=== PATIENT | male | born 1965 | race Caucasian/White ===

== ENCOUNTER 2016-12-08 21:23 | Emergency (ER) | payer BC ==
--- NOTE | 2016-12-08 21:41 | EDM.PDOC ---
ED HPI Trauma - General Chief Complaint: Upper Extremity Injury/Pain Stated Complaint: PT FELL AND HURT RT WRIST Time Seen by Provider: 12/08/16 21:36 Source: Reports: Patient History Limitations: Reports: No limitations - History of Present Illness INITIAL COMMENTS - FREE TEXT/NARRATIVE: HISTORY AND PHYSICAL: [51-year-old male presents after 2 hours ago falling from a standing position and had his right hand outstretched which hit a step bending it backwards. Pain has not improved] History of Present Illness: [Incident occurred about 2 hours previous to coming to the emergency department] Review of Systems: As per history of present illness and below otherwise all systems reviewed and negative. Past medical history: As per history of present illness and as reviewed below otherwise noncontributory. Surgical history: As per history of present illness and as reviewed below otherwise noncontributory. Social history: No reported history of drug or alcohol abuse. Family history: As per history of present illness and as reviewed below otherwise noncontributory. Physical exam: Alert gentleman denies hitting his head, edema is noted to his right wrist. HEENT: Atraumatic, normocehpalic, pupils reactive, negative for conjunctival pallor or scleral icterus, mucous membranes moist, throat clear, neck supple, nontender, trachea midline. Lungs: Clear to auscultation, breath sounds equal bilaterally, chest non tender. Heart: S1S2, regular, negative for clicks, rubs, or JVD. Abdomen: Soft, nondistended, nontender. Negative for masses or hepatossplenmegaly. Negative for costovertebral tenderness. Pelvis: Stable nontender. Genitourinary: Deferred. Rectal: Deferred Extremities: negative for cords or calf pain. Sensation is intact to the right fingers. Radial pulse is easily palpable. 2+ edema present the anterior surface of his right wrist. Neurovascular unremarkable. Neuro: Awake, alert, oriented. Cranial nerves II through XII unremarkable. Cerebellum unremarkable. Motor and sensory unremarkable throughout. Exam nonfocal. Discussed with patient and his the fracture to the wrist and picture was taken. Both verbalized understanding of these instructions. Diagnostics: [X-ray right wrist and forearm] Therapeutics: [] Impression: [closed distal radius fracture] Plan: [splint] Hydrocodone for pain elevate and ice followup next week for re-evaluation with your PCP Definitive disposition and diagnosis as appropriate pending reevaluation and review of above. Occurred When: this evening Occurred Where: home Method of Injury: fall Severity: moderate Pain/Injury Location: Reports: upper extremity, right Consciousness: Reports: no loss of consciousness, remembers incident, remembers coming to hosp Allergies/ADRs: Allergies fluoxetine [From Prozac] Allergy (Verified 12/08/16 21:33) Hives morphine Allergy (Verified 02/21/16 16:49) Vomiting promethazine [From Phenergan] Allergy (Verified 12/08/16 21:33) Vomiting Home Medications: Ambulatory Orders Allopurinol [Zyloprim] 300 mg PO DAILY 02/21/16 [Confirmed 12/08/16] Hydrochlorothiazide [Hydrochlorothiazide] 25 mg PO DAILY 02/21/16 [Confirmed ] Lisinopril [Lisinopril] 20 mg PO DAILY 02/21/16 [Confirmed 12/08/16] amLODIPine Besylate [Amlodipine Besylate] 5 mg PO DAILY 02/21/16 [Confirmed ] buPROPion [Wellbutrin XL] 1 tab PO DAILY 12/08/16 [Confirmed 12/08/16] Past Medical History Cardiovascular History: Reports: Hypertension Genitourinary History: Reports: Renal disease Musculoskeletal History: Reports: Gout, Other (see below) Other Musculoskeletal History: hip dislocation - Past Surgical History GI Surgical History: Reports: Cholecystectomy Musculoskeletal Surgical History: Reports: Shoulder surgery Other Musculoskeletal Surgeries/Procedures:: right shoulder surgery Social & Family History - Family History Family Medical History: Noncontributory - Tobacco Use Smoking Status *Q: Never Smoker Second Hand Smoke Exposure: No - Recreational Drug Use Recreational Drug Use: No Review of Systems - Review of Systems Review Of Systems: ROS reveals no pertinent complaints other than HPI. Trauma Exam - Physical Exam Exam: See Below Course - Vital Signs Last Recorded V/S: Last Vital Signs Temp 36.4 C 12/08/16 21:34 Pulse 98 12/08/16 21:34 Resp 20 12/08/16 21:34 BP 156/101 H 12/08/16 21:34 Pulse Ox 94 L 12/08/16 21:34 - Orders/Labs/Meds Orders: Active Orders 24 hr Category Date Time Status Splinting [RC] ASDIRECTED Care 12/08/16 22:35 Ordered Forearm 2V Rt [CR] Stat Exams 12/08/16 21:37 Ordered Wrist 2V Rt [CR] Stat Exams 12/08/16 21:37 Taken Meds: Medications Discontinued Medications Generic Name Dose Route Start Last Admin Trade Name Chiquita PRN Reason Stop Dose Admin Acetaminophen/Hydrocodone Bitart 1 tab 12/08/16 22:03 12/08/16 22:08 Napoleon 325-10 Mg PO 12/08/16 22:04 1 tab ONETIME ONE Administration Departure - Departure Time of Disposition: 22:38 Disposition: Home, Self-Care 01 Condition: good Clinical Impression: Closed fracture of radius Qualifiers: Encounter type: initial encounter Radius location: proximal Fracture morphology : unspecified fracture morphology Laterality: right Qualified Code(s): S52.101A - Unspecified fracture of upper end of right radius, initial encounter for closed fracture Forms: ED Department Discharge Additional Instructions: The following information is given to patients seen in the emergency department who are being discharged to home. This information is to outline your options for follow-up care. We provide all patients seen in our emergency department with a follow-up referral. The need for follow-up, as well as the timing and circumstances, are variable depending upon the specifics of your emergency department visit. If you don't have a primary care physician on staff, we will provide you with a referral. We always advise you to contact your personal physician following an emergency department visit to inform them of the circumstance of the visit and for follow-up with them and/or the need for any referrals to a consulting specialist. The emergency department will also refer you to a specialist when appropriate. This referral assures that you have the opportunity for followup care with a specialist. All of these measure are taken in an effort to provide you with optimal care, which includes your followup. Under all circumstances we always encourage you to contact your private physician who remains a resource for coordinating your care. When calling for followup care, please make the office aware that this follow-up is from your recent emergency room visit. If for any reason you are refused follow-up, please contact the [facility] emergency department at and asked to speak to the emergency department charge nurse. Elevate and Ice hydrocodone for pain followup with your PCP next week for re-evaluation Note for work - My Orders Last 24 Hours: My Active Orders 12/08/16 21:37 Forearm 2V Rt [CR] Stat Wrist 2V Rt [CR] Stat 12/08/16 22:35 Splinting [RC] ASDIRECTED - Assessment/Plan Last 24 Hours: My Active Orders 12/08/16 21:37 Forearm 2V Rt [CR] Stat Wrist 2V Rt [CR] Stat 12/08/16 22:35 Splinting [RC] ASDIRECTED
[2016-12-08] MEDS ORDERED: Acetaminophen/HYDROcodone 325-10 MG Tab PO ONE (22:03)
[2016-12-08 23:23] VITALS: BP 139/84
--- NOTE | 2016-12-11 15:36 | CR ---
EXAM DATE: 12/08/16 PATIENT'S AGE: 51 Patient: KHURRAM HEREDIA Facility: [place], [place] Site . Site : 1965 Study: XRay Extremity Right Wrist [id number]/17/2017 10:24:13 PM Ordering Physician: Doctor Rene Final Report: HISTORY: Fall. Comparison: None. Findings: Acute nondisplaced fractures of the distal radius and ulna. Question of sclerosis along with fracture line which may represent a subacute fracture. Moderate soft tissue swelling about the wrist. Dictated by Marie Mendoza MD @ Dec 08 2016 11:05PM (Electronic Signature) Report Signed by Proxy and Original Signed Document filed in the Medical Record. MTDD
--- NOTE | 2016-12-11 15:37 | CR ---
EXAM DATE: 12/08/16 PATIENT'S AGE: 51 Patient: KHURRAM HEREDIA Facility: [place], [place] Site . Site : 1965 Study: XRay Extremity Right forearm [id number]/17/2017 10:25:15 PM Ordering Physician: Doctor Rene Final Report: HISTORY: Fall. Comparison: None. Findings: Acute nondisplaced intra-articular, probable impaction fracture of the distal radius and ulna. Mild soft tissue swelling about the wrist. Dictated by Marie Mendoza MD @ Dec 08 2016 11:08PM (Electronic Signature) Report Signed by Proxy and Original Signed Document filed in the Medical Record. [facility]
== END 2016-12-08 23:15 | disposition home or self-care (01) ==
LOC: MW.ED 21:23
DX: S52.101A Unspecified fracture of upper end of right radius, initial encounter for closed fracture (principal); I10 Essential (primary) hypertension; W19.XXXA Unspecified fall, initial encounter; Z88.6 Allergy status to analgesic agent; Z88.5 Allergy status to narcotic agent; Z88.8 Allergy status to other drugs, medicaments and biological substances; Z90.89 Acquired absence of other organs; Z98.890 Other specified postprocedural states
CPT/HCPCS: 73090; 73100; 99283; A9270

== ENCOUNTER → 2016-12-14 | Outpatient (CLI) | payer BC ==
--- NOTE | 2016-12-14 15:32 | CR ---
EXAMINATION: Right wrist HISTORY: Fracture COMPARISON: 12/08/2016 TECHNIQUE: The oblique view FINDINGS: There is a nondisplaced radial styloid fracture. The scaphoid appears intact. Subchondral cystic changes noted at the scaphotrapezial articulation and mild degenerative changes at the first CMC joint. Bone mineralization is otherwise normal. IMPRESSION: 1. Nondisplaced radial styloid fracture. 2. Mild degenerative changes noted within the lateral wrist.
--- NOTE | 2016-12-15 10:05 | CT ---
EXAMINATION: CT right wrist HISTORY: Fracture COMPARISON: Radiographs dated 12/14/2016 12/08/2016 TECHNIQUE: Axial CT images obtained through the right wrist without contrast. Coronal and sagittal r econstructions obtained. FINDINGS: There is a horizontal radial styloid fracture identified, nondisplaced. There are a few co mminuted fragments along the dorsal aspect of the fracture line. These extend to the articular surfa ce. The radial scaphoid interval appears preserved. The scaphoid appears intact. Mild cystic degener ative changes are noted at the scaphoid trapezial articulation and the first CMC joint. Bone mineral ization is otherwise normal. The remaining osseous structures appear intact. Soft tissue swelling is noted adjacent to the distal radius. IMPRESSION: 1. Mildly comminuted radial styloid fracture. 2. Mild degenerative changes at the scaphotrapezial articulation and the first CMC joint.
== END ==
LOC: MW.CHORTHO 07:57
PROVIDERS: ATTEND Physician Assistant
DX: S62.101A Fracture of unspecified carpal bone, right wrist, initial encounter for closed fracture (principal); S52.514A Nondisplaced fracture of right radial styloid process, initial encounter for closed fracture
CPT/HCPCS: 73100-26-RT; 73100-RT; 73200-26-RT; 73200-RT

== ENCOUNTER → 2017-01-25 | Outpatient (CLI) | payer BC ==
--- NOTE | 2017-01-25 17:09 | CR ---
EXAMINATION: Right wrist HISTORY: Fracture COMPARISON: 12/28/2016 TECHNIQUE: 3 views FINDINGS/IMPRESSION: There is a stable healing distal intra-articular radius fracture identified. Frank ne mineralization and joint spaces otherwise appear preserved.
== END | disposition home or self-care (01) ==
LOC: MW.CHORTHO 07:53
PROVIDERS: ATTEND Physician Assistant
DX: S52.501D Unspecified fracture of the lower end of right radius, subsequent encounter for closed fracture with routine healing (principal)
CPT/HCPCS: 73110-26-RT; 73110-RT

== ENCOUNTER 2018-02-02 03:46 | Emergency (ER) | payer BC ==
[2018-02-02] MEDS ORDERED: Sodium Chloride 0.9% 1,000 ML IV ONE (03:59)
[2018-02-02] MEDS ORDERED: HYDROmorphone 2 MG/ML SDV IVPUSH ONE (03:59)
[2018-02-02] MEDS ORDERED: Ondansetron 4 MG/2 ML SDV IVPUSH ONE (03:59)
[2018-02-02] MEDS ORDERED: Sodium Chloride 0.9% 2.5 ML Syringe FLUSH PRN (03:59)
[2018-02-02] MEDS ORDERED: Sodium Chloride 0.9% 10 ML Syringe FLUSH PRN (03:59)
--- NOTE | 2018-02-02 04:04 | EDM.PDOC ---
ED HPI GENERAL MEDICAL PROBLEM - General Chief Complaint: Abdominal Pain Stated Complaint: LT SIDE HURTS Time Seen by Provider: 02/02/18 03:52 - History of Present Illness INITIAL COMMENTS - FREE TEXT/NARRATIVE: HISTORY AND PHYSICAL: History of present illness: The patient is a 52-year-old male with a history of hypertension sleep apnea for which he is not compliant with his BiPAP, kidney stones requiring lithotripsy on the right side and gout who presents with gradual onset of left upper quadrant left side abdominal pain that started yesterday at 3 PM. The patient tells me he had a normal day throughout the day without any systemic complaints and was eating and drinking normally when the pain gradually started. He describes as a deep pain and he thought maybe was a gas bubbles we tried Gas-X which did not help the pain. It is associated with nausea and vomiting but no diarrhea or black or bloody stools. He had a subjective fever but no documented fever and no cough chest pain or shortness of breath. He denies any trauma to the area and says the pain is underneath his ribs on the left side. He does not have any discrete flank tenderness and no urinary complaints. His only GI surgical history is of a cholecystectomy. The patient did not take any other pain medications specifically for the discomfort and is here for evaluation. He tells me that he only had kidney stones on the right in the past and this does not feel like a kidney stone or his typical presentation. Review of systems: As per history of present illness and below otherwise all systems reviewed and negative. Past medical history: As per history of present illness and as reviewed below otherwise noncontributory. Surgical history: As per history of present illness and as reviewed below otherwise noncontributory. Social history: No reported history of drug or alcohol abuse. Family history: As per history of present illness and as reviewed below otherwise noncontributory. Physical exam: General: Well-developed well-nourished man who is very overweight and vital signs are noted by me. He moves slowly in the ED due to some discomfort. HEENT: Atraumatic, normocephalic, negative for conjunctival pallor or scleral icterus, mucous membranes moist, throat clear, neck supple, nontender, trachea midline. Lungs: Clear to auscultation, breath sounds equal bilaterally, chest nontender. No wheezing stridor or work of breathing Heart: S1S2, regular, negative for clicks, rubs, or JVD. Abdomen: Soft, nondistended, bowel sounds are slightly hyperactive there is no tympany on percussion. There is tenderness in the left upper and mid abdominal areas extending underneath the ribs and to the midaxillary line without rebound or guarding. Negative for masses or hepatosplenomegaly. Negative for costovertebral tenderness. Pelvis: Stable nontender. Genitourinary: Deferred. Rectal: Deferred. Extremities: Atraumatic, negative for cords or calf pain. Neurovascular unremarkable. Neuro: Awake, alert, oriented. Cranial nerves II through XII unremarkable. Cerebellum unremarkable. Motor and sensory unremarkable throughout. Exam nonfocal. Diagnostics: CBC CMP amylase lipase UA, urine culture if indicated, H. pylori one view chest x-ray CT scan of the abdomen and pelvis EKG Therapeutics: IV IV fluids Zofran Dilaudid Since the patient has arrived his tachycardia has resolved. After being here for a short time patient said that he felt some chest discomfort on that same left sides when EKG was performed and reviewed by me. 0610:Patient tells nursing that his pain is almost gone. He is resting comfortably and it is noted that his oxygen level does decrease when he starts nodding off and going to sleep which is consistent with his history of sleep apnea. I'm currently awaiting the results of the CT and chest x-ray 0645: He and at bedside are aware of all testing results including his lower normal GFR and his CT scan which only indicated multiple small nonobstructing calculi in the left kidney. He does feel improved and I will give him some tramadol and Zofran for home to use for pain and nausea. I've advised him to have close follow-up with his provider at [facility] and reasons to return to the ED. Impression: Left upper abdominal pain etiology unclear stable Definitive disposition and diagnosis as appropriate pending reevaluation and review of above. Left abdominal pain Pain Score (Numeric/FACES): 8 - Related Data Allergies Allergy/AdvReac Type Severity Reaction Status Date / Time fluoxetine [From Prozac] Allergy Hives Verified 02/02/18 03:47 morphine Allergy Vomiting Verified 02/02/18 03:47 promethazine [From Phenergan] Allergy Vomiting Verified 02/02/18 03:47 Home Meds: Home Meds Allopurinol [Zyloprim] 300 mg PO DAILY 02/21/16 [History] Hydrochlorothiazide 25 mg PO DAILY 02/21/16 [History] Lisinopril 20 mg PO DAILY 02/21/16 [History] buPROPion [Wellbutrin XL] 1 tab PO DAILY 12/08/16 [History] Budesonide/Formoterol Fumarate [Symbicort 160-4.5 Mcg Inhaler] 2 puff IH ASDIRECTED 02/02/18 [History] Colesevelam [Welchol] 3 tab PO DAILY 02/02/18 [History] Sulfamethoxazole/Trimethoprim [Bactrim Ds Tablet] 1 each PO DAILY 02/02/18 [ History] amLODIPine Besylate [Norvasc] 5 mg PO DAILY 02/02/18 [History] Past Medical History HEENT History: Reports: Impaired Vision Cardiovascular History: Reports: Hypertension Respiratory History: Reports: Sleep Apnea Gastrointestinal History: Reports: Chronic Diarrhea Genitourinary History: Reports: Renal Calculus, Renal Disease Musculoskeletal History: Reports: Gout Other Musculoskeletal History: hip dislocation Endocrine/Metabolic History: Reports: Obesity/BMI 30+ - Past Surgical History Head Surgeries/Procedures: Reports: None GI Surgical History: Reports: Cholecystectomy Male Surgical History: Reports: Lithotripsy ([facility]) Musculoskeletal Surgical History: Reports: Shoulder Surgery Social & Family History - Family History Family Medical History: Noncontributory - Tobacco Use Smoking Status *Q: Never Smoker - Caffeine Use Caffeine Use: Reports: Soda - Recreational Drug Use Recreational Drug Use: No ED ROS GENERAL - Review of Systems Review Of Systems: ROS reveals no pertinent complaints other than HPI. ED EXAM, GENERAL - Physical Exam Exam: See Below (See dictation) Course - Vital Signs Last Recorded V/S: Last Vital Signs Temp 37.0 C 02/02/18 04:55 Pulse 96 02/02/18 05:41 Resp 18 02/02/18 05:41 BP 118/77 02/02/18 05:41 Pulse Ox 96 02/02/18 05:41 - Orders/Labs/Meds Orders: Active Orders 24 hr Category Date Time Status EKG 12 Lead [EKG Documentation Completion] [RC] STAT Care 02/02/18 04:48 Active Abdomen Pelvis w Cont [CT] Stat Exams 02/02/18 03:58 Taken Chest 1V Frontal [CR] Stat Exams 02/02/18 03:59 Taken UA W/MICROSCOPIC [URIN] Stat Lab 02/02/18 04:25 Ordered Sodium Chloride 0.9% [Saline Flush] Med 02/02/18 03:59 Active 10 ml FLUSH ASDIRECTED PRN Sodium Chloride 0.9% [Saline Flush] Med 02/02/18 03:59 Active 2.5 ml FLUSH ASDIRECTED PRN Saline Lock Insert [OM.PC] Stat Oth 02/02/18 03:58 Ordered Medication Orders Sodium Chloride (Saline Flush) 10 ml FLUSH ASDIRECTED PRN PRN Reason: Keep Vein Open Sodium Chloride (Saline Flush) 2.5 ml FLUSH ASDIRECTED PRN PRN Reason: Keep Vein Open Labs: Laboratory Tests 02/02/18 02/02/18 02/02/18 Range/Units 04:05 04:05 04:05 WBC 12.12 H (4.0-11.0) K/uL RBC 5.32 (4.50-5.90) M/uL Hgb 16.0 (13.0-17.0) g/dL Hct 47.0 (38.0-50.0) % MCV 88.3 (80.0-98.0) fL MCH 30.1 (27.0-32.0) pg MCHC 34.0 (31.0-37.0) g/dL RDW Std Deviation 45.3 (28.0-62.0) fl RDW Coeff of Carmina 14 (11.0-15.0) % Plt Count 160 (150-400) K/uL MPV 11.70 (7.40-12.00) fL Neut % (Auto) 86.6 H (48.0-80.0) % Lymph % (Auto) 4.0 L (16.0-40.0) % [place] % (Auto) 9.0 (0.0-15.0) % Eos % (Auto) 0.2 (0.0-7.0) % Baso % (Auto) 0.2 (0.0-1.5) % Neut # (Auto) 10.5 H (1.4-5.7) K/uL Lymph # (Auto) 0.5 L (0.6-2.4) K/uL [place] # (Auto) 1.1 H (0.0-0.8) K/uL Eos # (Auto) 0.0 (0.0-0.7) K/uL Baso # (Auto) 0.0 (0.0-0.1) K/uL Nucleated RBC % 0.0 /100WBC Nucleated RBCs # 0 K/uL Sodium 136 (136-148) mmol/L Potassium 4.4 (3.5-5.1) mmol/L Chloride 102 (98-107) mmol/L Carbon Dioxide 28.9 (21.0-32.0) mmol/L BUN 19 H (7.0-18.0) mg/dL Creatinine 1.5 H (0.8-1.3) mg/dL Est Cr Clr Drug Dosing 62.75 mL/min Estimated GFR (MDRD) 49.5 ml/min Glucose 167 H (74-106) mg/dL Calcium 9.3 (8.5-10.1) mg/dL Total Bilirubin 0.9 (0.2-1.0) mg/dL AST 26 (15-37) IU/L ALT 56 (14-63) IU/L Alkaline Phosphatase 84 (46-116) U/L Total Protein 8.3 H (6.4-8.2) g/dL Albumin 3.7 (3.4-5.0) g/dL Globulin 4.6 H (2.0-3.5) g/dL Albumin/Globulin Ratio 0.8 L (1.3-2.8) Amylase 54 (25-115) U/L Lipase 376 (73-393) U/L Urine Color Urine Appearance Urine pH (5.0-8.0) Ur Specific Electra (1.001-1.035) Urine Protein (NEGATIVE) mg/dL Urine Glucose (UA) (NEGATIVE) mg/dL Urine Ketones (NEGATIVE) mg/dL Urine Occult Blood (NEGATIVE) Urine Nitrite (NEGATIVE) Urine Bilirubin (NEGATIVE) Urine Urobilinogen (<2.0) EU/dL Ur Leukocyte Esterase (NEGATIVE) Urine RBC (0-2/HPF) Urine WBC (0-5/HPF) Ur Epithelial Cells (NONE-FEW) Urine Bacteria (NEGATIVE) H. pylori IgG Antibody NEGATIVE (NEG) 02/02/18 Range/Units 04:25 WBC (4.0-11.0) K/uL RBC (4.50-5.90) M/uL Hgb (13.0-17.0) g/dL Hct (38.0-50.0) % MCV (80.0-98.0) fL MCH (27.0-32.0) pg MCHC (31.0-37.0) g/dL RDW Std Deviation (28.0-62.0) fl RDW Coeff of Carmina (11.0-15.0) % Plt Count (150-400) K/uL MPV (7.40-12.00) fL Neut % (Auto) (48.0-80.0) % Lymph % (Auto) (16.0-40.0) % [place] % (Auto) (0.0-15.0) % Eos % (Auto) (0.0-7.0) % Baso % (Auto) (0.0-1.5) % Neut # (Auto) (1.4-5.7) K/uL Lymph # (Auto) (0.6-2.4) K/uL [place] # (Auto) (0.0-0.8) K/uL Eos # (Auto) (0.0-0.7) K/uL Baso # (Auto) (0.0-0.1) K/uL Nucleated RBC % /100WBC Nucleated RBCs # K/uL Sodium (136-148) mmol/L Potassium (3.5-5.1) mmol/L Chloride (98-107) mmol/L Carbon Dioxide (21.0-32.0) mmol/L BUN (7.0-18.0) mg/dL Creatinine (0.8-1.3) mg/dL Est Cr Clr Drug Dosing mL/min Estimated GFR (MDRD) ml/min Glucose (74-106) mg/dL Calcium (8.5-10.1) mg/dL Total Bilirubin (0.2-1.0) mg/dL AST (15-37) IU/L ALT (14-63) IU/L Alkaline Phosphatase (46-116) U/L Total Protein (6.4-8.2) g/dL Albumin (3.4-5.0) g/dL Globulin (2.0-3.5) g/dL Albumin/Globulin Ratio (1.3-2.8) Amylase (25-115) U/L Lipase (73-393) U/L Urine Color YELLOW Urine Appearance HAZY Urine pH 5.5 (5.0-8.0) Ur Specific Electra >= 1.030 (1.001-1.035) Urine Protein TRACE (NEGATIVE) mg/dL Urine Glucose (UA) NEGATIVE (NEGATIVE) mg/dL Urine Ketones NEGATIVE (NEGATIVE) mg/dL Urine Occult Blood MODERATE (NEGATIVE) Urine Nitrite NEGATIVE (NEGATIVE) Urine Bilirubin SMALL H (NEGATIVE) Urine Urobilinogen 0.2 (<2.0) EU/dL Ur Leukocyte Esterase NEGATIVE (NEGATIVE) Urine RBC 3-5 (0-2/HPF) Urine WBC 0-4 (0-5/HPF) Ur Epithelial Cells RARE (NONE-FEW) Urine Bacteria FEW (NEGATIVE) H. pylori IgG Antibody (NEG) Meds: Medications Generic Name Dose Route Start Last Admin Trade Name Freq PRN Reason Stop Dose Admin Sodium Chloride 10 ml 02/02/18 03:59 Saline Flush FLUSH ASDIRECTED PRN Keep Vein Open Sodium Chloride 2.5 ml 02/02/18 03:59 Saline Flush FLUSH ASDIRECTED PRN Keep Vein Open Discontinued Medications Generic Name Dose Route Start Last Admin Trade Name Freq PRN Reason Stop Dose Admin Hydromorphone HCl 1 mg 02/02/18 03:59 02/02/18 04:16 Dilaudid IVPUSH 02/02/18 04:00 1 mg ONETIME ONE Administration Sodium Chloride 1,000 mls @ 999 mls/hr 02/02/18 03:59 02/02/18 04:15 Normal Saline IV 02/02/18 04:59 999 mls/hr STAT ONE Administration Iopamidol 75 ml 02/02/18 06:00 02/02/18 06:01 Isovue Multipack-370 (76%) IVPUSH 02/02/18 06:01 75 ml ONETIME ONE Administration Ondansetron HCl 4 mg 02/02/18 03:59 02/02/18 04:15 Zofran IVPUSH 02/02/18 04:00 4 mg ONETIME ONE Administration Departure - Departure Time of Disposition: 06:55 Disposition: Home, Self-Care 01 Condition: Good Clinical Impression: Abdominal pain Qualifiers: Abdominal location: left upper quadrant Qualified Code(s): R10.12 - Left upper quadrant pain - Discharge Information Referrals: PCP,None [Primary Care Provider] - Forms: ED Department Discharge Additional Instructions: The following information is given to patients seen in the emergency department who are being discharged to home. This information is to outline your options for follow-up care. We provide all patients seen in our emergency department with a follow-up referral. The need for follow-up, as well as the timing and circumstances, are variable depending upon the specifics of your emergency department visit. If you don't have a primary care physician on staff, we will provide you with a referral. We always advise you to contact your personal physician following an emergency department visit to inform them of the circumstance of the visit and for follow-up with them and/or the need for any referrals to a consulting specialist. The emergency department will also refer you to a specialist when appropriate. This referral assures that you have the opportunity for followup care with a specialist. All of these measure are taken in an effort to provide you with optimal care, which includes your followup. Under all circumstances we always encourage you to contact your private physician who remains a resource for coordinating your care. When calling for followup care, please make the office aware that this follow-up is from your recent emergency room visit. If for any reason you are refused follow-up, please contact the [facility] emergency department at and ask to speak to the emergency department charge nurse. [facility] Primary care- [place] [address] Please push hydration and eat bland diet. Use pain medications, tramadol, and Zofran as needed and as discussed in please contact your provider at [facility] or one of our providers in the clinic on Sunday for further care and evaluation. ReTurn to ER as needed and as discussed - My Orders Last 24 Hours: My Active Orders 02/02/18 03:58 Abdomen Pelvis w Cont [CT] Stat Saline Lock Insert [OM.PC] Stat 02/02/18 03:59 Chest 1V Frontal [CR] Stat Sodium Chloride 0.9% [Saline Flush] 10 ml FLUSH ASDIRECTED PRN Sodium Chloride 0.9% [Saline Flush] 2.5 ml FLUSH ASDIRECTED PRN 02/02/18 04:25 UA W/MICROSCOPIC [URIN] Stat 02/02/18 04:48 EKG 12 Lead [EKG Documentation Completion] [RC] STAT - Assessment/Plan Last 24 Hours: My Active Orders 02/02/18 03:58 Abdomen Pelvis w Cont [CT] Stat Saline Lock Insert [OM.PC] Stat 02/02/18 03:59 Chest 1V Frontal [CR] Stat Sodium Chloride 0.9% [Saline Flush] 10 ml FLUSH ASDIRECTED PRN Sodium Chloride 0.9% [Saline Flush] 2.5 ml FLUSH ASDIRECTED PRN 02/02/18 04:25 UA W/MICROSCOPIC [URIN] Stat 02/02/18 04:48 EKG 12 Lead [EKG Documentation Completion] [RC] STAT
[2018-02-02] MEDS ORDERED: Iopamidol 755 MG/ML 200 ML Multipack Bottle IVPUSH ONE (06:00)
[2018-02-02 07:15] VITALS: BP 114/73
--- NOTE | 2018-02-04 18:27 | CR ---
EXAM DATE: 02/02/18 PATIENT'S AGE: 52 Patient: KHURRAM HEREDIA Facility: [place], [place] Site . Site : 1965 Study: XRay Chest [id number]/12/2018 5:56:31 AM Ordering Physician: Prabhakar Aguero Final Report: INDICATION: Shortness of Breath TECHNIQUE: Chest 1 view COMPARISON: None FINDINGS: Cardiovascular and mediastinum: The cardiac silhouette is within the upper limits of normal in size. Aneurysmal dilatation of the ascending thoracic aorta. Prominence of the pulmonary vascularity suggesting component of pulmonary hypertension. Lungs and pleural space: No focal consolidation. No sign of pleural effusion. No pneumothorax. Bones and soft tissues: No significant findings. IMPRESSION: No acute cardiopulmonary disease Dictated by Daljit Rodriguez MD @ 02/02/2018 6:35:26 AM Dictated by: Daljit Rodriguez MD @ 02/02/2018 06:35:37 (Electronic Signature) Report Signed by Proxy. [facility]ITALAlyse
--- NOTE | 2018-02-04 18:28 | CT ---
EXAM DATE: 02/02/18 PATIENT'S AGE: 52 Patient: KHURRAM HEREDIA Facility: [place], [place] Site . Site : 1965 Study: CT Abdomen/Pelvis [id number]/12/2018 5:57:55 AM Ordering Physician: Prabhakar Aguero Final Report: INDICATION: LUQ Pain. TECHNIQUE: CT abdomen and pelvis acquired with IV contrast. COMPARISON: None FINDINGS: Lower chest: Dependent atelectasis Liver: Diffuse fatty infiltration of the liver. Spleen: Subcentimeter focus of low attenuation which is too small to accurately characterize by CT. Pancreas: Unremarkable. Gallbladder and bile ducts: Cholecystectomy. Kidneys: Multiple nonobstructive intrarenal calculi throughout the left kidney. Adrenal glands: Unremarkable. GI tract: Duodenal diverticulum along the 2nd portion of the duodenum. Appendix is normal. Vascular structures: Negative. No sign of aneurysm. Lymph nodes: Unremarkable. Miscellaneous: Small fat containing umbilical hernia. No free air or significant free fluid. Pelvic Organs: Enlarged prostate. Bones: Degenerative changes. IMPRESSION: No acute abnormality of the abdomen and pelvis. Dictated by Daljit Rodriguez MD @ 02/02/2018 6:46:51 AM Dictated by: Daljit Rodriguez MD @ 02/02/2018 06:47:03 (Electronic Signature) Report Signed by Proxy. [facility]ITALAlyse
== END 2018-02-02 07:11 | disposition home or self-care (01) ==
LOC: MW.ED 03:46
DX: R10.12 Left upper quadrant pain (principal); I10 Essential (primary) hypertension; Z88.5 Allergy status to narcotic agent; Z88.8 Allergy status to other drugs, medicaments and biological substances; Z79.899 Other long term (current) drug therapy; Z87.442 Personal history of urinary calculi
CPT/HCPCS: 71045; 74177; 80053; 81001; 82150; 83690; 85025; 86677; 93005; 96361; 96374; 96375; 99285; J1170; J2405; J7040; Q9967

== ENCOUNTER 2019-12-12 20:34 | Emergency (ER) | payer BC ==
[2019-12-12] MEDS ORDERED: Ondansetron 4 MG/2 ML SDV IVPUSH ONE (21:03)
[2019-12-12] MEDS ORDERED: Ketorolac 30 MG/ML SDV IVPUSH ONE (21:03)
[2019-12-12] MEDS ORDERED: Sodium Chloride 0.9% 1,000 ML IV ONE (21:06)
--- NOTE | 2019-12-12 21:07 | EDM.PDOC ---
<Ramin Hernandez - Last Filed: 12/12/19 22:43> ED HPI GENERAL MEDICAL PROBLEM - General Chief Complaint: Genitourinary Problem Stated Complaint: KIDNEY STONES Time Seen by Provider: 12/12/19 20:38 - Related Data Allergies Allergy/AdvReac Type Severity Reaction Status Date / Time fluoxetine [From Prozac] Allergy Hives Verified 12/12/19 20:53 morphine Allergy Vomiting Verified 12/12/19 20:53 promethazine [From Phenergan] Allergy Vomiting Verified 12/12/19 20:53 Home Meds: Home Meds Allopurinol [Zyloprim] 300 mg PO DAILY 02/21/16 [History] Hydrochlorothiazide 25 mg PO DAILY 02/21/16 [History] Lisinopril 10 mg PO DAILY 02/21/16 [History] buPROPion [Wellbutrin XL] 1 tab PO DAILY 12/08/16 [History] Budesonide/Formoterol Fumarate [Symbicort 160-4.5 Mcg Inhaler] 2 puff IH ASDIRECTED 02/02/18 [History] Colesevelam [Welchol] 625 mg PO DAILY 02/02/18 [History] amLODIPine Besylate [Norvasc] 5 mg PO DAILY 02/02/18 [History] Meloxicam 15 mg PO DAILY 09/27/18 [History] Acetaminophen/oxyCODONE [Percocet 325-5 MG] 1 each PO Q6HR PRN #10 tab 12/12/19 [Rx] Ibuprofen 600 mg PO Q6HR #30 tablet 12/12/19 [Rx] Ondansetron [Zofran ODT] 4 mg PO Q6H PRN #7 tab.dis 12/12/19 [Rx] Tamsulosin [Tamsulosin 24 Hr] 0.4 mg PO DAILY #7 cap.er 12/12/19 [Rx] Course - Vital Signs Last Recorded V/S: Last Vital Signs Temp 96 F L 12/12/19 20:53 Pulse 85 12/12/19 22:39 Resp 19 12/12/19 22:39 BP 159/93 H 12/12/19 22:39 Pulse Ox 94 L 12/12/19 22:39 - Orders/Labs/Meds Orders: Active Orders 24 hr Category Date Time Status EKG Documentation Completion [RC] STAT Care 12/12/19 21:04 Active CULTURE URINE [RM] Stat Lab 12/12/19 20:55 Received Labs: Laboratory Tests 12/12/19 12/12/19 12/12/19 Range/Units 20:55 21:10 21:10 WBC 10.68 (4.0-11.0) K/uL RBC 5.28 (4.50-5.90) M/uL Hgb 15.8 (13.0-17.0) g/dL Hct 47.1 (38.0-50.0) % MCV 89.2 (80.0-98.0) fL MCH 29.9 (27.0-32.0) pg MCHC 33.5 (31.0-37.0) g/dL RDW Std Deviation 46.3 (28.0-62.0) fl RDW Coeff of Carmina 14 (11.0-15.0) % Plt Count 167 (150-400) K/uL MPV 11.70 (7.40-12.00) fL Neut % (Auto) 72.6 (48.0-80.0) % Lymph % (Auto) 18.2 (16.0-40.0) % Snyder % (Auto) 7.0 (0.0-15.0) % Eos % (Auto) 1.9 (0.0-7.0) % Baso % (Auto) 0.3 (0.0-1.5) % Neut # (Auto) 7.8 H (1.4-5.7) K/uL Lymph # (Auto) 1.9 (0.6-2.4) K/uL Snyder # (Auto) 0.8 (0.0-0.8) K/uL Eos # (Auto) 0.2 (0.0-0.7) K/uL Baso # (Auto) 0.0 (0.0-0.1) K/uL Nucleated RBC % 0.0 /100WBC Nucleated RBCs # 0 K/uL Sodium 144 (136-148) mmol/L Potassium 4.0 (3.5-5.1) mmol/L Chloride 105 (98-107) mmol/L Carbon Dioxide 28.8 (21.0-32.0) mmol/L BUN 17 (7.0-18.0) mg/dL Creatinine 1.6 H (0.8-1.3) mg/dL Est Cr Clr Drug Dosing 57.52 mL/min Estimated GFR (MDRD) 45.6 ml/min Glucose 160 H (74-106) mg/dL Calcium 8.8 (8.5-10.1) mg/dL Total Bilirubin 0.7 (0.2-1.0) mg/dL AST 28 (15-37) IU/L ALT 63 (14-63) IU/L Alkaline Phosphatase 88 (46-116) U/L Troponin I < 0.050 (0.000-0.056) ng/mL Total Protein 7.5 (6.4-8.2) g/dL Albumin 4.0 (3.4-5.0) g/dL Globulin 3.5 (2.6-4.0) g/dL Albumin/Globulin Ratio 1.1 (0.9-1.6) Lipase 252 (73-393) U/L Urine Color YELLOW Urine Appearance SLT CLOUDY Urine pH 5.5 (5.0-8.0) Ur Specific [place] 1.025 (1.001-1.035) Urine Protein NEGATIVE (NEGATIVE) mg/dL Urine Glucose (UA) NEGATIVE (NEGATIVE) mg/dL Urine Ketones NEGATIVE (NEGATIVE) mg/dL Urine Occult Blood LARGE H (NEGATIVE) Urine Nitrite NEGATIVE (NEGATIVE) Urine Bilirubin NEGATIVE (NEGATIVE) Urine Urobilinogen 0.2 (<2.0) EU/dL Ur Leukocyte Esterase NEGATIVE (NEGATIVE) Urine RBC 2-5 (0-2/HPF) Urine WBC 0-1 (0-5/HPF) Ur Epithelial Cells RARE (NONE-FEW) Urine Bacteria RARE (NEGATIVE) Meds: Medications Discontinued Medications Generic Name Dose Route Start Last Admin Trade Name Freq PRN Reason Stop Dose Admin Sodium Chloride 1,000 mls @ 999 mls/hr 12/12/19 21:06 12/12/19 21:16 Normal Saline IV 12/12/19 22:06 999 mls/hr STAT ONE Administration Ketorolac Tromethamine 30 mg 12/12/19 21:03 12/12/19 21:16 Toradol IVPUSH 12/12/19 21:04 30 mg ONETIME ONE Administration Ondansetron HCl 4 mg 12/12/19 21:03 12/12/19 21:16 Zofran IVPUSH 12/12/19 21:04 4 mg ONETIME ONE Administration Oxycodone/Acetaminophen 1 tab 12/12/19 22:58 Percocet 325-5 Mg PO Q8H PRN Pain Oxycodone/Acetaminophen 2 tab 12/12/19 23:03 12/12/19 23:13 Percocet 325-5 Mg PO 12/12/19 23:04 2 tab ONETIME ONE Administration - Re-Assessments/Exams Free Text/Narrative Re-Assessment/Exam: 12/12/19 22:43 symptoms likely nephrolithiasis based on ct. he feels improved, pain is manageable. tolerating PO. return precautions discussed with the patient, regarding signs of infection, dehydration, unbearable pain. UA without signs of infection. will d/c home with antiinflamatorries and instructed to follow up with gu. Departure - Departure Time of Disposition: 23:00 Disposition: Home, Self-Care 01 Clinical Impression: Nephrolithiasis, Kidney stone - Discharge Information Prescriptions: Acetaminophen/oxyCODONE [Percocet 325-5 MG] 1 each PO Q6HR PRN #10 tab PRN Reason: Pain (Moderate 4-6) Ibuprofen 600 mg PO Q6HR #30 tablet Ondansetron [Zofran ODT] 4 mg PO Q6H PRN #7 tab.dis PRN Reason: Nausea Tamsulosin [Tamsulosin 24 Hr] 0.4 mg PO DAILY #7 cap.er Instructions: Kidney Stones, [id number] Referrals: Oumou Potter CONTINUITY CLERK [Primary Care Provider] - Forms: ED Department Discharge Additional Instructions: The following information is given to patients seen in the emergency department who are being discharged to home. This information is to outline your options for follow-up care. We provide all patients seen in our emergency department with a follow-up referral. The need for follow-up, as well as the timing and circumstances, are variable depending upon the specifics of your emergency department visit. If you don't have a primary care physician on staff , we will provide you with a referral. We always advise you to contact your personal physician following an emergency department visit to inform them of the circumstance of the visit and for follow-up with them and/or the need for any referrals to a consulting specialist. The emergency department will also refer you to a specialist when appropriate. This referral assures that you have the opportunity for follow-up care with a specialist. All of these measure are taken in an effort to provide you with optimal care, which includes your follow- up. Under all circumstances we always encourage you to contact your private physician who remains a resource for coordinating your care. When calling for follow-up care, please make the office aware that this follow-up is from your recent emergency room visit. If for any reason you are refused follow-up, please contact the [facility] Emergency Department at and asked to speak to the emergency department charge nurse. [facility] [address] [place] [address] [place] [address] [facility] [address] [place] [address] return to ED if you develop worsening pain, fever, chills, confusion, vomiting, dehydration, inability to urinate or any concerns. Sepsis Event Note - Focused Exam Vital Signs: Vital Signs Pulse Resp BP Pulse Ox 12/12/19 22:39 85 19 159/93 H 94 L Date Exam was Performed: 12/12/19 Time Exam was Performed: 22:43 - My Orders Last 24 Hours: My Active Orders 12/12/19 20:55 CULTURE URINE [RM] Stat 12/12/19 21:04 EKG Documentation Completion [RC] STAT - Assessment/Plan Last 24 Hours: My Active Orders 12/12/19 20:55 CULTURE URINE [RM] Stat 12/12/19 21:04 EKG Documentation Completion [RC] STAT <Jenna Baron - Last Filed: 12/13/19 09:12> ED HPI GENERAL MEDICAL PROBLEM - General Source of Information: Reports: Patient History Limitations: Reports: No Limitations - History of Present Illness INITIAL COMMENTS - FREE TEXT/NARRATIVE: HISTORY AND PHYSICAL: History of present illness: Patient is a 54-year-old male who presents to the ED today with concern of left flank pain that is worsened over the last 2 hours. Patient states since Sunday he has had the pain kind of off-and-on and then 2 hours ago hit harder. Patient states he has had kidney stones in the past which feels similar to his symptoms today. Patient states he did have some blood in his urine yesterday but has not noticed any blood in his urine today. Patient states she has a history of hypertension but denies any other health history. Patient states he has not taken anything today for his symptoms or pain. Patient denies any other symptoms or concerns. Patient denies fever, chills, chest pain, shortness of breath, or cough. Denies headache, neck stiff ness, change in vision, syncope, or near syncope. Denies nausea, vomiting, diarrhea, constipation, or dysuria. Has not noted any blood in stool. Patient has been eating and drinking appropriately. Review of systems: As per history of present illness and below otherwise all systems reviewed and negative. Past medical history: As per history of present illness and as reviewed below otherwise noncontributory. Surgical history: As per history of present illness and as reviewed below otherwise noncontributory. Social history: See social history for further information Family history: As per history of present illness and as reviewed below otherwise noncontributory. Physical exam: General: Patient is alert, oriented, and in no acute distress. Patient standing in exam room holding left flank area but comfortable appearing. HEENT: Atraumatic, normocephalic, pupils equal and reactive bilaterally, negative for conjunctival pallor or scleral icterus, mucous membranes moist, TMs normal bilaterally, throat clear, neck supple, nontender, trachea midline. No drooling or trismus noted. No meningeal signs. No hot potato voice noted. Lungs: Clear to auscultation, breath sounds equal bilaterally, chest nontender. Heart: S1S2, regular rate and rhythm without overt murmur Abdomen: Soft, nondistended, nontender. Negative for masses or hepatosplenomegaly. Positive for costovertebral tenderness of the left. Pelvis: Stable nontender. Genitourinary: Deferred. Rectal: Deferred. Skin: Intact, warm, dry. No lesions or rashes noted. Extremities: Atraumatic, negative for cords or calf pain. Neurovascular unremarkable. Neuro: Awake, alert, oriented. Cranial nerves II through XII unremarkable. Cerebellum unremarkable. Motor and sensory unremarkable throughout. Exam nonfocal. Notes: Dr. Can has assumed care of patient and will follow remaining diagnostics and disposition. Diagnostics: UA, EKG, CBC, CMP, Lipase Trop, Abd/Pelvic w/o contrast, CXR Therapeutics: NS, Zofran, Toradol Prescription: Impression: Left flank pain Plan: Definitive disposition and diagnosis as appropriate pending reevaluation and review of above. left flank/abdominal Pain Score (Numeric/FACES): 8 Past Medical History HEENT History: Reports: Impaired Vision Other HEENT History: wears glasses Cardiovascular History: Reports: Hypertension Respiratory History: Reports: Sleep Apnea Gastrointestinal History: Reports: Chronic Diarrhea Genitourinary History: Reports: Renal Calculus, Renal Disease Musculoskeletal History: Reports: Gout Other Musculoskeletal History: hip dislocation Neurological History: Reports: Headaches, Chronic, Migraines Psychiatric History: Reports: None Endocrine/Metabolic History: Reports: Obesity/BMI 30+ Insulin Pump Model and Barytes Grinder: None Hematologic History: Reports: None Immunologic History: Reports: None Oncologic (Cancer) History: Reports: None Dermatologic History: Reports: None - Infectious Disease History Infectious Disease History: Reports: None - Past Surgical History Head Surgeries/Procedures: Reports: None HEENT Surgical History: Reports: None GI Surgical History: Reports: Cholecystectomy Male Surgical History: Reports: Lithotripsy (ESWL) Musculoskeletal Surgical History: Reports: Shoulder Surgery Social & Family History - Family History Family Medical History: Noncontributory - Tobacco Use Smoking Status *Q: Never Smoker - Caffeine Use Caffeine Use: Reports: Energy Drinks - Recreational Drug Use Recreational Drug Use: No ED ROS GENERAL - Review of Systems Review Of Systems: Comprehensive ROS is negative, except as noted in HPI. ED EXAM, GENERAL - Physical Exam Exam: See Below (see dictation) Course - Orders/Labs/Meds Labs: Laboratory Tests 12/12/19 12/12/19 12/12/19 Range/Units 20:55 21:10 21:10 WBC 10.68 (4.0-11.0) K/uL RBC 5.28 (4.50-5.90) M/uL Hgb 15.8 (13.0-17.0) g/dL Hct 47.1 (38.0-50.0) % MCV 89.2 (80.0-98.0) fL MCH 29.9 (27.0-32.0) pg MCHC 33.5 (31.0-37.0) g/dL RDW Std Deviation 46.3 (28.0-62.0) fl RDW Coeff of Carmina 14 (11.0-15.0) % Plt Count 167 (150-400) K/uL MPV 11.70 (7.40-12.00) fL Neut % (Auto) 72.6 (48.0-80.0) % Lymph % (Auto) 18.2 (16.0-40.0) % Snyder % (Auto) 7.0 (0.0-15.0) % Eos % (Auto) 1.9 (0.0-7.0) % Baso % (Auto) 0.3 (0.0-1.5) % Neut # (Auto) 7.8 H (1.4-5.7) K/uL Lymph # (Auto) 1.9 (0.6-2.4) K/uL Snyder # (Auto) 0.8 (0.0-0.8) K/uL Eos # (Auto) 0.2 (0.0-0.7) K/uL Baso # (Auto) 0.0 (0.0-0.1) K/uL Nucleated RBC % 0.0 /100WBC Nucleated RBCs # 0 K/uL Sodium 144 (136-148) mmol/L Potassium 4.0 (3.5-5.1) mmol/L Chloride 105 (98-107) mmol/L Carbon Dioxide 28.8 (21.0-32.0) mmol/L BUN 17 (7.0-18.0) mg/dL Creatinine 1.6 H (0.8-1.3) mg/dL Est Cr Clr Drug Dosing 57.52 mL/min Estimated GFR (MDRD) 45.6 ml/min Glucose 160 H (74-106) mg/dL Calcium 8.8 (8.5-10.1) mg/dL Total Bilirubin 0.7 (0.2-1.0) mg/dL AST 28 (15-37) IU/L ALT 63 (14-63) IU/L Alkaline Phosphatase 88 (46-116) U/L Troponin I < 0.050 (0.000-0.056) ng/mL Total Protein 7.5 (6.4-8.2) g/dL Albumin 4.0 (3.4-5.0) g/dL Globulin 3.5 (2.6-4.0) g/dL Albumin/Globulin Ratio 1.1 (0.9-1.6) Lipase 252 (73-393) U/L Urine Color YELLOW Urine Appearance SLT CLOUDY Urine pH 5.5 (5.0-8.0) Ur Specific [place] 1.025 (1.001-1.035) Urine Protein NEGATIVE (NEGATIVE) mg/dL Urine Glucose (UA) NEGATIVE (NEGATIVE) mg/dL Urine Ketones NEGATIVE (NEGATIVE) mg/dL Urine Occult Blood LARGE H (NEGATIVE) Urine Nitrite NEGATIVE (NEGATIVE) Urine Bilirubin NEGATIVE (NEGATIVE) Urine Urobilinogen 0.2 (<2.0) EU/dL Ur Leukocyte Esterase NEGATIVE (NEGATIVE) Urine RBC 2-5 (0-2/HPF) Urine WBC 0-1 (0-5/HPF) Ur Epithelial Cells RARE (NONE-FEW) Urine Bacteria RARE (NEGATIVE) Sepsis Event Note - Evaluation Sepsis Screening Result: No Definite Risk - Focused Exam Date Exam was Performed: 12/13/19 Time Exam was Performed: 09:11
[2019-12-12 21:46] LABS: BLOOD UREA NITROGEN,BUN 17 mg/dL (7.0-18.0); CARBON DIOXIDE,CO2 28.8 mmol/L (21.0-32.0); CHLORIDE,CL 105 mmol/L (98-107); GLUCOSE RANDOM 160 mg/dL (74-106); LIPASE 252 U/L (73-393); SODIUM,NA 144 mmol/L (136-148)
--- NOTE | 2019-12-12 21:58 | CR ---
Chest: PA view of the chest was obtained. Comparison: Prior chest x-ray of 02/02/18. Heart size and mediastinum are normal. Lungs are clear with no acute parenchymal change. Bony structures are grossly intact. Impression: 1. Nothing acute is appreciated on PA chest x-ray. Diagnostic code #1 Study was dictated in MDT
--- NOTE | 2019-12-12 22:29 | CT ---
Indication: Left flank pain, history of kidney stones Technique: Nonenhanced axial CT imaging through the abdomen and pelvis. Sagittal and coronal reconstructions are provided. Comparison: None Findings: There is a 3 mm stone in the distal left ureter, approximately 1.5 cm proximal to the ureterovesical junction. This results in mild left hydronephrosis and renal edema. There are two additional nonobstructing stones in the left renal collecting system, measuring 2 mm each. A 3 mm nonobstructing stone is also noted in the right renal collecting system. There is no right hydronephrosis. There is unremarkable noncontrast appearance of the liver, spleen, pancreas, and adrenal glands. Cholecystectomy clips are noted. There is no abdominal lymphadenopathy. There is normal caliber of the abdominal aorta. The stomach and duodenum are unremarkable. There are no abnormally dilated small bowel loops. The appendix is noninflamed. There is no colonic wall thickening. No inflammatory changes are demonstrated in the mesentery. Degenerative disc disease is noted at L4-5 with disc osteophyte complex causing bilateral neural foraminal stenosis. The osseous structures are otherwise unremarkable. The included lung bases are clear. Impression: 1. A 3 mm distal left ureteral stone causing mild left hydronephrosis and renal edema. 2. Additional small nonobstructing renal stones, one on the right and two on the left. Please note that all CT scans at this facility use dose modulation, iterative reconstruction, and/or weight-based dosing when appropriate to reduce radiation dose to as low as reasonably achievable. Dictated by Adrienne Lackey MD @ Dec 12 2019 10:15PM Signed by Dr. Adrienne Lackey @ Dec 12 2019 10:28PM
[2019-12-12 22:39] VITALS: BP 159/93; PULSE 85
[2019-12-12] MEDS ORDERED: Acetaminophen/oxyCODONE 325-5 MG Tab PO PRN (22:58)
[2019-12-12] MEDS ORDERED: Acetaminophen/oxyCODONE 325-5 MG Tab PO ONE (23:03)
== END 2019-12-12 23:16 | disposition home or self-care (01) ==
LOC: MW.ED 20:34
DX: N13.2 Hydronephrosis with renal and ureteral calculous obstruction (principal); I10 Essential (primary) hypertension; M10.9 Gout, unspecified; Z87.442 Personal history of urinary calculi; E66.9 Obesity, unspecified; Z68.41 Body mass index [BMI] 40.0-44.9, adult; Z90.49 Acquired absence of other specified parts of digestive tract; Z88.8 Allergy status to other drugs, medicaments and biological substances; Z88.5 Allergy status to narcotic agent; Z79.899 Other long term (current) drug therapy
CPT/HCPCS: 36415; 71045; 74176; 80053; 81001; 83690; 84484; 85025; 87086; 93005; 96361; 96374; 96375; 99285; A9270; J1885; J2405; J7030

== ENCOUNTER 2019-12-14 00:52 | Emergency (ER) | payer BC ==
[2019-12-14] MEDS ORDERED: Ondansetron 4 MG/2 ML SDV IVPUSH ONE (00:54)
[2019-12-14] MEDS ORDERED: HYDROmorphone 1 MG/ML Syringe IVPUSH ONE (00:54)
[2019-12-14] MEDS ORDERED: Sodium Chloride 0.9% 1,000 ML IV ONE (00:55)
--- NOTE | 2019-12-14 01:07 | EDM.PDOC ---
ED HPI GENERAL MEDICAL PROBLEM - General Chief Complaint: Genitourinary Problem Stated Complaint: KIDNEY STONES Time Seen by Provider: 12/14/19 01:02 Source of Information: Reports: Patient - History of Present Illness INITIAL COMMENTS - FREE TEXT/NARRATIVE: 54-year-old male presents to the emergency room with left flank pain. Patient has a history of kidney stone was in the emergency room yesterday. Pain exacerbated patient presented today Onset: Today Location: Reports: Abdomen Quality: Reports: Burning Severity: Severe Associated Symptoms: Reports: Nausea/Vomiting left flank Pain Score (Numeric/FACES): 10 - Related Data Allergies Allergy/AdvReac Type Severity Reaction Status Date / Time fluoxetine [From Prozac] Allergy Hives Verified 12/14/19 00:58 morphine Allergy Vomiting Verified 12/14/19 00:58 promethazine [From Phenergan] Allergy Vomiting Verified 12/14/19 00:58 Home Meds: Home Meds Allopurinol [Zyloprim] 300 mg PO DAILY 02/21/16 [History] Hydrochlorothiazide 25 mg PO DAILY 02/21/16 [History] Lisinopril 10 mg PO DAILY 02/21/16 [History] buPROPion [Wellbutrin XL] 1 tab PO DAILY 12/08/16 [History] Budesonide/Formoterol Fumarate [Symbicort 160-4.5 Mcg Inhaler] 2 puff IH ASDIRECTED 02/02/18 [History] Colesevelam [Welchol] 625 mg PO DAILY 02/02/18 [History] Meloxicam 15 mg PO DAILY 09/27/18 [History] Acetaminophen/oxyCODONE [Percocet 325-5 MG] 1 each PO Q6HR PRN #10 tab 12/12/19 [Rx] Ibuprofen 600 mg PO Q6HR #30 tablet 12/12/19 [Rx] Ondansetron [Zofran ODT] 4 mg PO Q6H PRN #7 tab.dis 12/12/19 [Rx] Tamsulosin [Tamsulosin 24 Hr] 0.4 mg PO DAILY #7 cap.er 12/12/19 [Rx] Phentermine HCl 15 mg PO DAILY 12/14/19 [History] Past Medical History HEENT History: Reports: Impaired Vision Other HEENT History: wears glasses Cardiovascular History: Reports: Hypertension Respiratory History: Reports: Sleep Apnea Gastrointestinal History: Reports: Chronic Diarrhea Genitourinary History: Reports: Renal Calculus, Renal Disease Musculoskeletal History: Reports: Gout Other Musculoskeletal History: hip dislocation Neurological History: Reports: Headaches, Chronic, Migraines Psychiatric History: Reports: None Endocrine/Metabolic History: Reports: Obesity/BMI 30+ Insulin Pump Model and Cable Ferryboat Operator: None Hematologic History: Reports: None Immunologic History: Reports: None Oncologic (Cancer) History: Reports: None Dermatologic History: Reports: None - Infectious Disease History Infectious Disease History: Reports: None - Past Surgical History Head Surgeries/Procedures: Reports: None HEENT Surgical History: Reports: None GI Surgical History: Reports: Cholecystectomy Male Surgical History: Reports: Lithotripsy (ESWL) Musculoskeletal Surgical History: Reports: Shoulder Surgery Social & Family History - Family History Family Medical History: Noncontributory - Caffeine Use Caffeine Use: Reports: Energy Drinks ED ROS GENERAL - Review of Systems Review Of Systems: See Below Constitutional: Reports: No Symptoms HEENT: Reports: No Symptoms Respiratory: Reports: No Symptoms Cardiovascular: Reports: No Symptoms Endocrine: Reports: No Symptoms GI/Abdominal: Reports: Nausea, Vomiting : Reports: Flank Pain Musculoskeletal: Reports: No Symptoms Skin: Reports: No Symptoms Neurological: Reports: No Symptoms Psychiatric: Reports: No Symptoms Hematologic/Lymphatic: Reports: No Symptoms Immunologic: Reports: No Symptoms ED EXAM, RENAL/ - Physical Exam Exam: See Below Exam Limited By: No Limitations General Appearance: Alert, WD/WN, No Apparent Distress Eye Exam: Bilateral Eye: EOMI, Normal Fundi, Normal Inspection Ears: Normal External Exam Nose: Normal Inspection Throat/Mouth: Normal Inspection Head: Atraumatic, Normocephalic Neck: Normal Inspection, Supple, Non-Tender Respiratory/Chest: No Respiratory Distress, Lungs Clear Cardiovascular: Normal Peripheral Pulses, Regular Rate, Rhythm, No JVD, No Murmur (Male) Exam: Deferred Back Exam: Normal Inspection, Full Range of Motion Extremities: Normal Inspection, Normal Range of Motion, No Pedal Edema Neurological: Alert, Oriented, CN II-XII Intact, Normal Cognition, Normal Reflexes, No Motor/Sensory Deficits Psychiatric: Normal Affect, Normal Mood Skin Exam: Warm, Dry, Intact, Normal Color Lymphatic: No Adenopathy Course - Vital Signs Text/Narrative:: 54-year-old gentleman presents emergency room with a chief complaint of right- sided kidney stone. Patient was recently in our emergency room for the same less than 24 hours ago patient states his pain is getting worse and he cannot tolerate it. On exam patient has right-sided is very apprehensive and panting. He states the pain is a 20 out of 10. P patient was given IV Toradol and IV Dilaudid. No longer in pain will discharge home. Last Recorded V/S: Last Vital Signs Temp 95 F L 12/14/19 00:55 Pulse 88 12/14/19 03:15 Resp 20 12/14/19 02:20 BP 126/74 12/14/19 03:15 Pulse Ox 98 12/14/19 03:15 - Orders/Labs/Meds Meds: Medications Discontinued Medications Generic Name Dose Route Start Last Admin Trade Name Chiquita PRN Reason Stop Dose Admin Hydromorphone HCl 1 mg 12/14/19 00:54 12/14/19 01:04 Dilaudid IVPUSH 12/14/19 00:55 1 mg ONETIME ONE Administration Sodium Chloride 1,000 mls @ 999 mls/hr 12/14/19 00:55 12/14/19 01:02 Normal Saline IV 12/14/19 01:55 999 mls/hr .Bolus ONE Administration Ketorolac Tromethamine 30 mg 12/14/19 01:57 12/14/19 02:14 Toradol IVPUSH 12/14/19 01:58 30 mg ONETIME ONE Administration Lorazepam 1 mg 12/14/19 05:08 Ativan IVPUSH 12/14/19 05:09 ONETIME ONE Ondansetron HCl 4 mg 12/14/19 00:54 12/14/19 01:03 Zofran IVPUSH 12/14/19 00:55 4 mg ONETIME ONE Administration Tamsulosin HCl 0.4 mg 12/14/19 03:16 12/14/19 03:36 Flomax PO 12/14/19 03:17 0.4 mg ONETIME ONE Administration Departure - Departure Time of Disposition: 05:14 Disposition: Home, Self-Care 01 Condition: Good Clinical Impression: Ureteritis, Kidney stone - Discharge Information Instructions: Renal Colic, [id number] Referrals: Oumou Potter COVERING MACHINE OPERATOR HELPER [Primary Care Provider] - Forms: ED Department Discharge Sepsis Event Note - Evaluation Sepsis Screening Result: No Definite Risk - Focused Exam Vital Signs: Vital Signs Temp Pulse Resp BP Pulse Ox 12/14/19 03:15 88 126/74 98 12/14/19 02:20 83 20 146/95 H 94 L 12/14/19 01:16 72 22 H 171/105 H 94 L 12/14/19 00:55 95 F L 74 20 168/93 H 93 L Date Exam was Performed: 12/14/19 Time Exam was Performed: 05:10
[2019-12-14] MEDS ORDERED: Ketorolac 30 MG/ML SDV IVPUSH ONE (01:57)
[2019-12-14] MEDS ORDERED: Tamsulosin 0.4 MG Cap.ER PO ONE (03:16)
[2019-12-14] MEDS ORDERED: LORazepam 2 MG/ML SDV IVPUSH ONE (05:08)
[2019-12-14 05:33] VITALS: BP 127/79; PULSE 90
== END 2019-12-14 05:25 | disposition home or self-care (01) ==
LOC: MW.ED 00:52
DX: N34.2 Other urethritis (principal); N20.0 Calculus of kidney; M10.9 Gout, unspecified; I10 Essential (primary) hypertension; E66.9 Obesity, unspecified; Z68.41 Body mass index [BMI] 40.0-44.9, adult; Z88.5 Allergy status to narcotic agent; Z88.8 Allergy status to other drugs, medicaments and biological substances; Z79.899 Other long term (current) drug therapy
CPT/HCPCS: 96361; 96374; 96375; 99284; A9270; J1170; J2405; J7030; J1885